=== PATIENT | male | born 1985 | race Two or more races ===

== ENCOUNTER 2023-08-01 13:49 | Inpatient (IN) | payer OTHER ==
[2023-08-01] VITALS (8 sets, daily range): BP systolic 160–173; BP diastolic 98–110; PULSE 60–79; RESP 18–20; TEMP 97.2–97.4
[~2023-08-01] VITALS: Ht 172.7 cm; Wt 77.0 kg
[2023-08-01 15:48] LABS: COVID AG,FIA SOURCE NASAL SWAB
[2023-08-01 15:57] LABS: BASOPHILS % (AUTO) 0.8 % (0.0-2.0); EOSINOPHILS % (AUTO) 1.8 % (1.0-6.0); HEMATOCRIT 37.3 % (41-53); HEMOGLOBIN 12.2 g/dL (13.5-17.5); LYMPHOCYTES # (AUTO) 2.2 K/uL (1.0-4.8); LYMPHOCYTES % (AUTO) 38.2 % (22.0-44.0); MEAN CORPUSCULAR HEMOGLOBIN 30.5 pg (26.0-34.0); MEAN CORPUSCULAR HGB CONC 32.7 G/dL (31.0-37.0); MEAN CORPUSCULAR VOLUME 93 fL (80-100); MONOCYTES # (AUTO) 0.3 K/uL (0.1-1.0); MONOCYTES % (AUTO) 5.8 % (2.0-9.0); NEUTROPHILS # (AUTO) 3.1 K/uL (1.8-7.7); NEUTROPHILS % (AUTO) 53.4 % (40.0-70.0); PLATELET COUNT (AUTO) 175 K/uL (150-450); RED CELL DISTRIBUTION WIDTH 14.7 % (11.5-14.5); WHITE BLOOD COUNT (AUTO) 5.8 K/uL (4.5-11.0)
[2023-08-01 16:07] LABS: CALCIUM, TOTAL 9.1 mg/dL (8.8-10.5); CREATININE 12.49 mg/dL (0.60-1.30)
[2023-08-01 16:12] LABS: POTASSIUM 6.7 mmol/L (3.5-5.1)
[2023-08-01 16:14] LABS: SARS-COV2 (COVID) ANTIGEN,FIA Negative (Negative)
[2023-08-01 16:16] LABS: TROPONIN I-HIGH SENSITIVITY 10 ng/L (<76)
[2023-08-01] MEDS ORDERED: ACETAMINOPHEN 325 MG TABLET PO PRN (16:30)
[2023-08-01] MEDS ORDERED: ZOLPIDEM TARTRATE 5 MG TABLET PO PRN (16:30)
[2023-08-01] MEDS: DEXTROSE 50%-WATER 25 GM/50 ML SYRINGE IVP ONE (16:39)
[2023-08-01] MEDS: SODIUM BICARBONATE [ADULT] 8.4% 50 MEQ/50 ML SYRINGE IVP ONE (16:39)
[2023-08-01] MEDS: INSULIN REGULAR, HUMAN 100 UNITS/ML IVP ONE (16:41)
[2023-08-01] MEDS: CALCIUM GLUCONATE 100 MG/ML 10 ML IVP ONE (17:02)
[2023-08-01] MEDS ORDERED: SODIUM CHLORIDE 0.9% 2,000 ML ONE (17:55)
[2023-08-01] MEDS: DOCUSATE SODIUM 100 MG CAPSULE PO SCH (21:00)
[2023-08-01] MEDS: AmLODIPine BESYLATE 10 MG TABLET PO SCH (21:52)
[2023-08-02] VITALS (14 sets, daily range): BP systolic 134–164; BP diastolic 70–117; PULSE 56–78; RESP 16–18; TEMP 97.8–98.2
[2023-08-02 01:59] LABS: APPEARANCE,URINE CLEAR (CLEAR); BILIRUBIN,URINE NEGATIVE (NEGATIVE); COLOR,URINE COLORLESS (YELLOW); GLUCOSE, URINE (UA) 150-200 mg/dL (NEGATIVE); KETONES,URINE NEGATIVE (NEGATIVE); LEUKOCYTE ESTERASE ,URINE NEGATIVE (NEGATIVE); NITRATE,URINE NEGATIVE (NEGATIVE); OCCULT BLOOD,URINE NEGATIVE (NEGATIVE); PROTEIN,URINE 100-200,SEE CONFIRM mg/dL (NEGATIVE); SPECIFIC GRAVITIY, URINE 1.009 (1.003-1.030); UROBILINOGEN,URINE <=1.0 mg/dL (<=1.0)
[2023-08-02 02:02] LABS: BACTERIA,URINE None Seen /HPF (None Seen); RBC,URINE None Seen /HPF (0-2); SQUAMOUS EPITHELIAL CELL,UR None Seen /LPF (None Seen); SULFOSALICYLIC ACID,URINE 1+ (Negative); WBC,URINE None Seen /HPF (0-5)
[2023-08-02] MEDS: FAMOTIDINE 20 MG TABLET PO SCH (08:40)
[2023-08-02 10:17] LABS: CALCIUM, TOTAL 9.7 mg/dL (8.8-10.5); CREATININE 8.49 mg/dL (0.60-1.30); MAGNESIUM 2.9 mg/dL (1.80-2.40); PHOSPHORUS 4.2 mg/dL (2.5-4.9)
[2023-08-02 10:19] LABS: POTASSIUM 6.5 mmol/L (3.5-5.1)
[2023-08-02] MEDS ORDERED: DiphenhydrAMINE HCL 50 MG/ML VIAL IVP ONE (12:00)
[2023-08-02] MEDS: SODIUM ZIRCONIUM CYCLOSILICATE 5 GM POWDER PACKET PO ONE (12:37)
[2023-08-02] MEDS ORDERED: CALCIUM GLUCONATE 100 MG/ML 10 ML IVP ONE (15:30)
[2023-08-02] MEDS ORDERED: SODIUM CHLORIDE 0.9% 2,000 ML ONE (16:11)
[2023-08-03] VITALS (12 sets, daily range): BP systolic 113–146; BP diastolic 65–93; PULSE 61–89; RESP 16–18; TEMP 97.2–98.7
[2023-08-03 06:02] LABS: CALCIUM, TOTAL 10.7 mg/dL (8.8-10.5); CREATININE 6.8 mg/dL (0.60-1.30); POTASSIUM 5.5 mmol/L (3.5-5.1)
[2023-08-03] MEDS ORDERED: SODIUM CHLORIDE 0.9% 1,000 ML ONE (08:34)
[2023-08-03] MEDS: SODIUM ZIRCONIUM CYCLOSILICATE 5 GM POWDER PACKET PO SCH (08:57)
[2023-08-03] MEDS: DiphenhydrAMINE HCL 50 MG/ML VIAL IVP ONE (10:01)
[2023-08-03] MEDS ORDERED: AMLO-258 PO (12:25)
[2023-08-03] MEDS ORDERED: DOCU-385 PO (12:26)
[2023-08-03] MEDS ORDERED: FAMO20 PO (12:26)
[2023-08-03] MEDS ORDERED: SODI5POW3 PO (12:27)
[2023-08-03] MEDS ORDERED: ACET-2247 PO (12:28)
== END 2023-08-03 17:40 | DRG 640 ==
LOC: EMS 13:49 → 6S 15:58 → 5S 18:11
PROVIDERS: ADMIT Internal Medicine; ATTEND Internal Medicine
PROC: 5A1D70Z Performance of Urinary Filtration, Intermittent, Less than 6 Hours Per Day (ICD-10-PCS; principal; 2023-08-01)
PROC: 5A1D70Z Performance of Urinary Filtration, Intermittent, Less than 6 Hours Per Day (ICD-10-PCS; 2023-08-02)
PROC: 5A1D70Z Performance of Urinary Filtration, Intermittent, Less than 6 Hours Per Day (ICD-10-PCS; 2023-08-03)
DX: E87.5 Hyperkalemia (principal); N18.6 End stage renal disease; I12.0 Hypertensive chronic kidney disease with stage 5 chronic kidney disease or end stage renal disease; D63.1 Anemia in chronic kidney disease; J45.909 Unspecified asthma, uncomplicated; Z20.822 Contact with and (suspected) exposure to COVID-19; Z99.2 Dependence on renal dialysis
CPT/HCPCS: 71045; 80048; 81001; 81002; 83735; 84100; 84484; 85025; 87340; 90935; 93005; 99285; J0610; J1200; J1815; J3490; J7030; Q9967; 36415-L1; 36415-TC

== ENCOUNTER 2023-08-17 08:56 | Inpatient (IN) | payer OTHER ==
[2023-08-17] VITALS (10 sets, daily range): BP systolic 120–138; BP diastolic 62–84; PULSE 60–71; RESP 1–18; TEMP 96.8–98.4
[~2023-08-17] VITALS: Ht 170.2 cm; Wt 76.8 kg
[~2023-08-17 08:56] MED LIST: ACET-2247 PO; AMLO-258 PO; DOCU-385 PO; FAMO20 PO; FOLI0.8T43 PO; SODI5POW3 PO
[2023-08-17 09:43] LABS: CALCIUM, TOTAL 9.8 mg/dL (8.8-10.5); CREATININE 10.66 mg/dL (0.60-1.30); POTASSIUM 4.9 mmol/L (3.5-5.1)
[2023-08-17 10:00] LABS: EOSINOPHILS % (AUTO) 1.8 % (1.0-6.0); HEMATOCRIT 35.1 % (41-53); HEMOGLOBIN 11.6 g/dL (13.5-17.5); LYMPHOCYTES # (AUTO) 1.2 K/uL (1.0-4.8); LYMPHOCYTES % (AUTO) 27.7 % (22.0-44.0); MEAN CORPUSCULAR HEMOGLOBIN 30.6 pg (26.0-34.0); MEAN CORPUSCULAR HGB CONC 33.1 G/dL (31.0-37.0); MEAN CORPUSCULAR VOLUME 93 fL (80-100); MONOCYTES # (AUTO) 0.2 K/uL (0.1-1.0); MONOCYTES % (AUTO) 5.8 % (2.0-9.0); NEUTROPHILS # (AUTO) 2.7 K/uL (1.8-7.7); NEUTROPHILS % (AUTO) 63.7 % (40.0-70.0); PLATELET COUNT (AUTO) 169 K/uL (150-450); RED BLOOD CELL COUNT(AUTO) 3.79 MIL/uL (4.50-5.90); RED CELL DISTRIBUTION WIDTH 13.8 % (11.5-14.5); WHITE BLOOD COUNT (AUTO) 4.2 K/uL (4.5-11.0)
[2023-08-17] MEDS ORDERED: ACETAMINOPHEN 325 MG TABLET PO PRN (10:30)
[2023-08-17] MEDS ORDERED: DiphenhydrAMINE HCL 50 MG/ML VIAL IVP ONE (12:00)
[2023-08-17] MEDS ORDERED: DiphenhydrAMINE HCL 50 MG/ML VIAL IVP PRN (16:30)
[2023-08-17] MEDS ORDERED: DOCUSATE SODIUM 100 MG CAPSULE PO SCH (21:00)
[2023-08-18] MEDS ORDERED: FOLIC ACID/VIT B COMPLEX AND C TABLET PO SCH (09:00)
[2023-08-18] MEDS ORDERED: FAMOTIDINE 20 MG TABLET PO SCH (09:00)
[2023-08-18] MEDS ORDERED: AmLODIPine BESYLATE 10 MG TABLET PO SCH (09:00)
[2023-08-19] MEDS ORDERED: SODIUM ZIRCONIUM CYCLOSILICATE 5 GM POWDER PACKET PO SCH (09:00)
== END 2023-08-17 17:26 | DRG 640 ==
LOC: EMS 08:56 → OBSVTOIN 11:17 → INTOOBSV 11:17 → EDH 11:17
PROVIDERS: ADMIT Hospitalist; ATTEND Hospitalist
PROC: 5A1D70Z Performance of Urinary Filtration, Intermittent, Less than 6 Hours Per Day (ICD-10-PCS; principal; 2023-08-17)
DX: E87.5 Hyperkalemia (principal); N18.6 End stage renal disease; I12.0 Hypertensive chronic kidney disease with stage 5 chronic kidney disease or end stage renal disease; D63.1 Anemia in chronic kidney disease; J45.909 Unspecified asthma, uncomplicated; Z99.2 Dependence on renal dialysis
CPT/HCPCS: 80048; 85025; 90935; 99285; G0378; J1200